=== PATIENT | female | born 1940 | race Caucasian/White ===

== ENCOUNTER 2017-03-25 18:31 | Inpatient (IN) | payer OTHER ==
[~2017-03-25] VITALS: Ht 162.6 cm; Wt 54.4 kg
[~2017-03-25 18:31] MED LIST: ACYCLOVIR IV; AMLODIPINE BESYL5 M1 PO; BIOTIN2500 MCG PO; CALTRATE 600 +1 EACH PO; FISH OIL 1,0001 EACH PO; KEPPRA500 M1 PO; LEVETIRACETAM500 M3 PO; LEVOTHYROXINE50 MCG PO; MAGNESIUM500 M2 PO; MIRALAX119 GM PO; OXYBUTYNIN CHLO10 M1 PO; PHOSPHA 250 NE250 MG PO; SENNA PLUS TAB1 EACH PO; TYLENOL325 M1 PO; VITAMIN D3400 UNI1 PO
--- NOTE | 2017-03-25 18:56 | ED AMS/SEIZURE/WEAK/DIZZY ---
History of Present Illness General Chief Complaint: Altered Mental Status Stated Complaint: BIBA AMS Source: patient, family Exam Limitations: confusion Vital Signs & Intake/Output Vital Signs & Intake/Output Vital Signs Date Time Temp Pulse Resp B/P B/P Pulse O2 O2 Flow FiO2 Mean Ox Delivery Rate 03/25 2332 97.5 68 18 132/62 97 Room Air 03/25 2104 99.5 78 19 147/68 97 Room Air 03/25 2011 78 172/84 03/25 2009 99.1 76 19 172/84 96 Room Air 03/25 1856 Room Air Room Air 03/25 1837 99.1 90 19 197/81 98 Room Air ED Intake and Output 03/26 0000 03/25 1200 Intake Total 10 Output Total Balance 10 Intake, IV 10 Patient 125 lb Weight Weight Reported by Patient Measurement Method Allergies Coded Allergies: No Known Allergies (10/27/15) Reconcile Medications Acetaminophen (Tylenol) 325 MG TABLET 650 MG PO Q4P PRN FEVER Acyclovir Sodium 50 MG/1 ML VIAL 600 MG IV Q8H HSV2 encephalitis Please 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 It was started because you have high blood pressure when you came in. Biotin 2,500 MCG CAPSULE 2 CAP PO DAILY SUPPLEMENT (Reported) Calcium Carbonate/Vitamin D3 (Caltrate 600 + D Tablet) 1 EACH TABLET 1 TAB PO BID SUPPLEMENT (Reported) Cholecalciferol (Vitamin D3) (Vitamin D3) 400 UNIT TABLET 2 TAB PO DAILY SUPPLEMENT (Reported) Levetiracetam (Keppra) 500 MG TABLET 1,000 MG PO BID Seizure disorder Please follow up with your neurologist as the dose has been changed. Levothyroxine Sodium 50 MCG TABLET 1 TAB PO DAILY AC THYROID (Reported) Magnesium Oxide (Magnesium) 500 MG CAPSULE 1 CAP PO BID SUPPLEMENT (Reported) [place]-3 Fatty Acids/Fish Oil (Fish Oil 1,000 MG Capsule) 1 EACH CAPSULE 1 CAP PO DAILY supplement (Reported) Oxybutynin Chloride (Oxybutynin Chloride ER) 10 MG TAB.ER.24 1 TAB PO DAILY BLADDER (Reported) Polyethylene Glycol 3350 (Miralax) 119 GM POWDER 17 GM PO DAILY PRN CONSTIPATION Sennosides/Docusate Sodium (Senna Plus Tablet) 1 EACH TABLET 2 TAB PO DAILY PRN Constipation Triage Note: PT BIBA FROM HOME WITH PRESENT C/C AMS OF SUDDEN ONSET. REPORTS THAT PATIENT CAME TO HIM APPROX 2 PM STATING THAT SHE DIDN'T FEEL RIGHT. AFTER QUESTIONING HER HE DISCOVERED THAT SHE WAS NOT RECALLING THE EVENTS OF THE MORNING. PATIENT HAD BEEN TO VISIT HER SISTER IN LAW AT A REHAB FACILITY. PATIENT CONTINUES TO HAVE NO RECOLLECTION OF THAT. PT ALERT TO PERSON AND PLACE BUT UNSURE OF TIME/DATE. PT FORGETS RECENT CONVERSATION WELL. PT HTN FOR EMS AND UPON ARRIVAL (194/81 AUTO CUFF CONFIRMED MANUALLY). PT STATES NO HX OF HTN AND APPEARS SURPRISED TO HEAR A FEW MINUTES AFTER THE CONVERSATION THAT HER B/P WAS ELEVATED IF THE PREVIOUS CONVERSATION HAD NOT JUST HAPPENED. EMS REPORTS AND CONFIRMS HX OF SEIZURES, ENCEPHALITIS, TIA'A AND EPISODES OF AMNESIA. STATES THE EPISODES OF AMNESIA WAS YEARS AGO. PT NEUROS OTHERWISE INTACT WITH NO FACIAL DROOP, NO DRIFT, EQUAL STRENGTH UPPER/LOWER EXTREMITIES. PT DENIES ANY PAIN. HAS [facility] IV #22 RH. MD TARIQ GARCIA INTO EVALUATE PATIENT ON ARRIVAL TO ER. DAUGHTER ON PHONE WITH DR GARCIA REPORTS HX OF TRANSIENT GLOBAL AMNESIA. Triage Nurses Notes Reviewed? yes HPI: 77 yo F PMH Hypothyroidism, HSV encephalitis, Epilepsy (on keppra), TGA presenting with altered mental status. Per patients she has had progressive confusion since this afternoon aroun 14:00, she has forgotten the events from the morning (visited her sister in the hospital), could not remember things he had just told her, pleasantly confused without agitation or apparent focal neurologic deficits. Denies headache, neck pain, visual changes, weakness, numbness. Patient has been in her usual state of health for the last several days, no recent fevers, chest pain, SOB, palpitations, AP, N/V/D/C, bloody stools, urinary Sx. Daughter states patient had identical presentaiton 1 year ago for hyponatremia to 110 and HSV encephalitis. (Delvin GALLEGOS,Emanuel) Past History Travel History Traveled to [place] past 21 day No Medical History Any Pertinent Medical History? see below for history Neurological: seizure, TIA, ENCEPHALITIS TRANSIENT GLOBAL AMNESIA MIGRAINES W/ AURA EENT: NONE Cardiovascular: NONE Respiratory: NONE Gastrointestinal: NONE Hepatic: NONE Renal: NONE Musculoskeletal: NONE Psychiatric: NONE Endocrine: hypothyroidism Blood Disorders: NONE Cancer(s): NONE AVIATION NEUROPSYCHOLOGIST/Reproductive: NONE History of MRSA: No History of VRE: No History of CDIFF: No Surgical History Surgical History: s/p resection of bladder mass ?neoplasm Psychosocial History Who do you live with Spouse Services at Home None What is your primary language Amharic Tobacco Use: Never used ETOH Use: occasional use Illicit Drug Use: denies illicit drug use Family History Hx Contributory? No (Emanuel Garcia MD) Review of Systems Review of Systems Constitutional: Reports: no symptoms. EENTM: Reports: no symptoms. Respiratory: Reports: no symptoms. Cardiovascular: Reports: no symptoms. GI: Reports: no symptoms. Genitourinary: Reports: no symptoms. Musculoskeletal: Reports: no symptoms. Skin: Reports: no symptoms. Neurological/Psychological: Reports: see HPI. Hematologic/Endocrine: Reports: no symptoms. Immunologic/Allergic: Reports: no symptoms. All Other Systems: Reviewed and Negative (Emanuel Garcia MD) Physical Exam Physical Exam General Appearance: well developed/nourished, no apparent distress, alert Head: atraumatic Eyes: Bilateral: PERRL, EOMI. Ears, Nose, Throat: moist mucus membranes Neck: full range of motion, no midline tenderness Respiratory: normal breath sounds, no respiratory distress Cardiovascular: regular rate/rhythm, normal peripheral pulses Gastrointestinal: soft, non-tender Back: normal inspection, no vertebral tenderness Comments: Neurologic: Oriented to person and "hospital", pleasantly confused, cranial nerves II through XII intact as tested, no pronator drift, normal finger-nose- finger and [id number] testing, no sensory deficits throughout, strength 5 out of 5 throughout bilateral lower upper lower extremities Core Measures ACS in differential dx? No CVA/TIA Diagnosis Yes Sepsis Present: No Sepsis Focused Exam Completed? No (Emanuel Garcia MD) Progress Differential Diagnosis: arrythmia, alcohol intoxication, anemia, benign positional vertigo, CVA/stroke, dehydration, drug intoxication, encephalitis, electrolyte imbalance, GI bleed, hypoglycemia, hypoxia, intracranial Hem., intracranial mass/tumor, labrynthitis, meningitis, Meniere's disease, migraine CAMPO, multiple sclerosis, pneumonia, postural hypotension, presyncope, post- traumatic vertigo, sepsis, seizure disorder, subarachnoid Hem., UTI/pyelo, vertebrobasilar insuff Plan of Care: Orders Procedure Date/time Status Pathway - chart 03/25 2355 Active House Staff 03/25 2355 Active Patient Data 03/25 2355 Active Code Status 03/25 2355 Active Patient Data 03/25 2127 Active Admit to inpatient 03/25 2112 Active Intake & Output 03/25 2110 Active NIH Stroke Scale 03/25 193 Active CEREBROSPINAL FLUID CULTURE 03/25 1858 Active HERPES SIMPLEX VIRUS CSF 03/25 1858 Active CSF TOTAL PROTEIN 03/25 1858 Complete CEREBROSPINAL FL CELL CT 03/25 1858 Complete CSF GLUCOSE 03/25 1858 Complete URINALYSIS 03/25 1857 Complete TROPONIN LEVEL 03/25 1857 Complete LACTIC ACID 03/25 1857 Complete HEPATIC FUNCTION PANEL 03/25 1857 Complete CBC WITHOUT DIFFERENTIAL 03/25 1857 Complete BASIC METABOLIC PANEL 03/25 1857 Complete EKG 03/25 1857 Active VTE Mechanical Prophylaxis 03/25 UNK Active Telemetry/Phlebotomy Services Technician 03/25 UNK Active Laboratory Tests 03/25/172044: CSF Glucose 60, CSF Total Protein 79 H 03/25/172044: CSF WBC 2, CSF RBC 2 H, CSF Comment , Herpes Simplex Source Pending, HSV I DNA PCR Pending, HSV II DNA PCR Pending 03/25/172003: Anion Gap 12, Estimated GFR > 60, BUN/Creatinine Ratio 30.0 H, Glucose 126 H, Lactic Acid 1.0, Calcium 9.6, Total Bilirubin 0.5, Direct Bilirubin 0.2, AST 22, ALT 30, Alkaline Phosphatase 92, Troponin I < 0.01, Total Protein 7.0, Albumin 4.5 03/25/171925: CBC w Diff NO MAN DIFF REQ, RBC 4.81, MCV 90.2, MCH 30.5, MCHC 33.8, RDW 12.9, MPV 7.8, Gran % 67.4, Lymphocytes % 26.7, Monocytes % 4.8, Eosinophils % 0.6, Basophils % 0.5, Absolute Granulocytes 4.2, Absolute Lymphocytes 1.6, Absolute Monocytes 0.3, Absolute Eosinophils 0, Absolute Basophils 0 03/25/171911: Urine Color STRAW, Urine Clarity CLEAR, Urine pH 6.0, Ur Specific [place] 1.010, Urine Protein NEG, Urine Ketones NEG, Urine Nitrite NEG, Urine Bilirubin NEG, Urine Urobilinogen 0.2, Ur Leukocyte Esterase NEG, Ur Microscopic SEDIMENT EXAMINED, Urine RBC FEW H, Urine WBC RARE, Ur Epithelial Cells RARE, Urine Bacteria RARE H, Urine Mucus RARE, Urine Hemoglobin TRACE-INTACT, Urine Glucose NEG Microbiology 03/25 2044 CENT N S: CSF Culture - RES 03/25 2044 CENT N S: Gram Stain - RES Physician MDM: 64 yo M PMH HTN, HLD, COPD presenting with URI Sx, hypoxia. Hypertensive to 190s SBP, otherwise VSS, rectal temp 99.1, neurologic exam as above. DDx: ICH, hypertensive urgency, HSV encephalitis, TGA, CVA, metabolic derrangement, sepsis. EKG sinus rhythm. CBC, BMP unremarkable, normal white blood cell count and sodium. Chest x-ray and urine without signs of infection. CT head unchanged from previous. Given unclear cause for altered mental status, lumbar puncture performed, vancomycin, ceftriaxone, and acyclovir ordered. On re -examination patient persistently confused, admit for observation, IV abx pending CSF results. Initial ED EKG: NSR (Delvin GALLEGOS,Emanuel) Departure Departure Disposition: STILL A PATIENT Condition: Stable Clinical Impression Primary Impression: Confusion Referrals: Jr GALLEGOS,Kennedy Barillas (PCP/Family) Departure Forms: Customer Survey General Discharge Information Admission Note Spoke With: Beatrice Stewart MD Documentation of Exam: Documentation of any treatments & extenuating circumstances including Concerns Regarding Discharge (functional status, medication knowledge or non-compliance, living conditions, etc.) that warrant an admission rather than observation: [ Patient presents with acute onset altered mental status in the setting of hypertension and history of herpes simplex encephalitis, lumbar puncture was performed given concern for HSV encephalitis, patient requires admission to the hospital for ongoing IV antibiotics for possible encephalitis, monitoring for clearing of altered mental status, possible neurology and infectious disease consultation, further evaluation, if the patient was discharged she has a high likelihood of continued altered mental status, with possible overwhelming LACQUER POLISHER infection and ] (Emanuel Garcia MD) Resident Co-Sign Statement Statement: ED Attending supervision documentation- [] I saw and evaluated the patient. I have also reviewed all the pertinent lab results and diagnostic results. I agree with the findings and the plan of care as documented in the Resident's documentation. [X] I have reviewed the ED Record and agree with the Resident's documentation. [] Additions or exceptions (if any) to the Resident's note and plan are summarized below: [] (Jourdan GALLEGOS,Mamta)
[2017-03-25 19:32] LABS: ABSOLUTE BASOPHIL COUNT 0 /CUMM (0.0-0.2); ABSOLUTE EOSINOPHIL COUNT 0 /CUMM (0.0-0.7); ABSOLUTE GRANULOCYTE CT 4.2 /CUMM (1.4-6.5); ABSOLUTE LYMPH COUNT 1.6 /CUMM (1.2-3.4); ABSOLUTE MONOCYTE COUNT 0.3 /CUMM (0.10-0.60); BASOPHIL % 0.5 % (0.0-2.0); EOSINOPHIL % 0.6 % (0-5); GRANULOCYTE % 67.4 % (42.2-75.2); HEMATOCRIT 43.3 % (37-47); MEAN CORPUSCULAR HGB 30.5 PG (27.0-31.0); MEAN CORPUSCULAR HGB CONC 33.8 G/DL (33.0-37.0); MEAN CORPUSCULAR VOLUME 90.2 FL (81.0-99.0); MEAN PLATELET VOLUME 7.8 FL (7.4-10.4); PLATELET COUNT 231 /CUMM (130-400); RBC DISTRIBUTION WIDTH 12.9 % (11.5-14.5); RED BLOOD CELL CT 4.81 /CUMM (4.20-5.40); WHITE BLOOD CELL COUNT 6.2 /CUMM (4.8-10.8)
--- NOTE | 2017-03-25 19:49 | RADIOLOGY REPORT ---
EXAMINATION: XR CHEST CLINICAL INFORMATION: Fever. COMPARISON: Chest portable 11/03/2015. TECHNIQUE: 2 views of the chest were obtained. FINDINGS: Both lungs are well-expanded and clear of acute process. The heart size and pulmonary vascularity is normal. There is mild dextroscoliosis of dorsal spine. No lytic process. IMPRESSION: Unremarkable chest exam.
--- NOTE | 2017-03-25 20:17 | CT SCAN REPORT ---
EXAMINATION: CT HEAD WITHOUT CONTRAST CLINICAL INFORMATION: Confusion and hypertension. COMPARISON: MRI brain 10/30/2015. TECHNIQUE: Contiguous axial imaging was performed from the skull base to vertex without intravenous administration of contrast. DLP: 614 mGy-cm FINDINGS: There is no evidence of acute intracranial hemorrhage or territorial infarction. 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 No abnormal mass effect or midline shift is seen. Holly to white matter differentiation is well preserved. No extra-axial fluid collections are identified. The lateral ventricles are enlarged and so are the cortical sulci. There is ex vacuo dilatation of right temporal horn lateral ventricle secondary to encephalomalacia. There is no abnormal attenuation within the brain parenchyma. The osseous structures and soft tissues are normal. The mastoid air cells and visualized portions of the paranasal sinuses are well aerated. IMPRESSION: No acute intracranial process seen. 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 On previous MRI white matter changes were seen in temporal lobe suspicious for herpes simplex encephalitis.
--- NOTE | 2017-03-25 23:34 | History & Physical ---
Romel Lares MD 03/25/17 4113: General Information and HPI MD Statement: I have seen and personally examined CHAR NELSON and documented this H&P. The patient is a 77 year old F who presented with a patient stated chief complaint of [altered mental status]. Source of Information: patient, family Exam Limitations: confusion, poor historian History of Present Illness: Patient is a 77-year-old female with a PMH significant for seizure disorder ( last seizure approximately 34 years ago) on Keppra, HSV encephalitis, TIA, transient global amnesia, HTN, who presents today due to altered mental status. Patient's was at bedside and reports that she was in her usual state of health this morning however after returning from a trip to visit her sister she complained to her of not feeling well. She was unable to articulate exactly what her complaint was however at this time her noticed that she had no recollection of visiting her sister and was taking several seconds to respond to questions. She states that she no longer takes her antihypertensive medicine or Synthroid. In the patient currently has some exercise and a very poor memory review of systems was unreliable. She currently denies any headache, visual changes, numbness, tingling, weakness, chest pain, shortness breath, nausea, vomiting, fever, chills. Allergies/Medications Allergies: Coded Allergies: No Known Allergies (10/27/15) Past History Travel History Traveled to [place] past 21 day No Medical History Neurological: seizure, TIA, ENCEPHALITIS TRANSIENT GLOBAL AMNESIA MIGRAINES W/ AURA EENT: NONE Cardiovascular: NONE Respiratory: NONE Gastrointestinal: NONE Hepatic: NONE Renal: NONE Musculoskeletal: NONE Psychiatric: NONE Endocrine: hypothyroidism Blood Disorders: NONE Cancer(s): NONE VETERINARY TOXICOLOGIST/Reproductive: NONE History of MRSA: No History of VRE: No History of CDIFF: No Surgical History Surgical History: s/p resection of bladder mass ?neoplasm Past Family/Social History Family History Relations & Conditions if any Relation not specified for: *No pertinent family history Psychosocial History Where do you live? Home Who Do You Live With? spouse Services at Home: None Primary Language: Bulgarian Smoking Status: Never Smoked ETOH Use: 1-2 glasses of wine daily Illicit Drug Use: denies illicit drug use Living Will? no Functional Ability ADLs Independent: dressing, eating, toileting, bathing. Ambulation: independent IADLs Independent: shopping, housework, food prep, telephone, transportation. Needs Assist: medication admin. Review of Systems Review of Systems Constitutional: Reports: malaise. Denies: chills, diaphoresis, fever. EENTM: Denies: blurred vision, double vision, visual changes. Cardiovascular: Denies: chest pain, orthopena, palpitations, syncope. Respiratory: Denies: cough, orthopnea, short of breath. GI: Reports: no symptoms. Genitourinary: Reports: no symptoms. Musculoskeletal: Reports: no symptoms. Skin: Reports: no symptoms. Neurological/Psychological: Reports: confusion. Denies: headache, numbness, paresthesia. Comments Patient is able to repeat 3 respectively however she could not recall them after 30 seconds Exam & Diagnostic Data Last 24 Hrs of Vital Signs/I&O Vital Signs Date Time Temp Pulse Resp B/P B/P Pulse O2 O2 Flow FiO2 Mean Ox Delivery Rate 03/26 0546 97.5 66 18 126/59 96 Room Air 03/26 0314 97.5 63 18 159/72 97 Room Air 03/26 0129 98.6 79 18 144/65 97 Room Air 03/25 2332 97.5 68 18 132/62 97 Room Air 03/25 2104 99.5 78 19 147/68 97 Room Air 03/25 2011 78 172/84 03/25 2009 99.1 76 19 172/84 96 Room Air 03/25 1856 Room Air Room Air 03/25 1837 99.1 90 19 197/81 98 Room Air Intake & Output 03/26 0800 / 0000 03/25 1600 Intake Total 350 10 Output Total Balance 350 10 Intake, IV 350 10 Patient 125 lb Weight Weight Reported by Patient Measurement Method Physical Exam General Appearance Alert, Cooperative, No Acute Distress, oriented to person, knows she is in a hospital but cannot name it, not oriented to time Skin Temp/Moisture Exam: Warm/Dry HEENT Atraumatic, PERRLA, EOMI, Mucous Membr. moist/pink Neck Supple, No thryomegaly, no stiffness Cardiovascular Regular Rate, Normal S1, Normal S2 Lungs Clear to Auscultation, Normal Air Movement Abdomen Normal Bowel Sounds, Soft, No Tenderness Neurological Normal Speech, Strength at 5/5 X4 Ext, Normal Tone, Sensation Intact, Cranial Nerves 3-12 NL Extremities No Clubbing, No Cyanosis, No Edema Last 24 Hrs of Labs/Titi: Laboratory Tests 03/26/17 0138: Methadone Screen Cancelled, Barbiturate Screen Cancelled, Ur Phencyclidine Scrn Cancelled, Amphetamines Screen Cancelled, U Benzodiazepines Scrn Cancelled, Urine Cocaine Screen Cancelled, Urine Cannabis Screen Cancelled 03/25/172044: CSF Glucose 60, CSF Total Protein 79 H 03/25/172044: CSF WBC 2, CSF RBC 2 H, CSF Comment , Herpes Simplex Source Pending, HSV I DNA PCR Pending, HSV II DNA PCR Pending 03/25/17 2004: Anion Gap 12, Estimated GFR > 60, BUN/Creatinine Ratio 30.0 H, Glucose 126 H, Lactic Acid 1.0, Calcium 9.6, Total Bilirubin 0.5, Direct Bilirubin 0.2, AST 22, ALT 30, Alkaline Phosphatase 92, Troponin I < 0.01, Total Protein 7.0, Albumin 4.5, Vitamin B12 > 1000 H, Folate 6.5, TSH 1.200, Free T4 1.24 03/25/171925: CBC w Diff NO MAN DIFF REQ, RBC 4.81, MCV 90.2, MCH 30.5, MCHC 33.8, RDW 12.9, MPV 7.8, Gran % 67.4, Lymphocytes % 26.7, Monocytes % 4.8, Eosinophils % 0.6, Basophils % 0.5, Absolute Granulocytes 4.2, Absolute Lymphocytes 1.6, Absolute Monocytes 0.3, Absolute Eosinophils 0, Absolute Basophils 0 03/25/17 191: Urine Opiates Screen < 100.00, Methadone Screen < 40, Barbiturate Screen < 60, Ur Phencyclidine Scrn < 6.00, Amphetamines Screen < 100, U Benzodiazepines Scrn < 85, Urine Cocaine Screen < 50, Urine Cannabis Screen < 5.00, Urine Color STRAW , Urine Clarity CLEAR, Urine pH 6.0, Ur Specific [place] 1.010, Urine Protein NEG, Urine Ketones NEG, Urine Nitrite NEG, Urine Bilirubin NEG, Urine Urobilinogen 0.2, Ur Leukocyte Esterase NEG, Ur Microscopic SEDIMENT EXAMINED, Urine RBC FEW H, Urine WBC RARE, Ur Epithelial Cells RARE, Urine Bacteria RARE H, Urine Mucus RARE, Urine Hemoglobin TRACE-INTACT, Urine Glucose NEG Microbiology 03/25 2044 CENT N S: CSF Culture - RES 03/25 2044 CENT N S: Gram Stain - RES Diagnostic Data EKG Results NSR CXR Results unremarkable Other Results Head CT No acute intracranial process seen. 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 On previous MRI white matter changes were seen in temporal lobe suspicious for herpes simplex encephalitis. Assessment/Plan Assessment: Patient is a 77-year-old female with a PMH significant for seizure disorder ( last seizure approximately 34 years ago) on Keppra, HSV encephalitis, TIA, transient global amnesia, HTN, who presents today due to altered mental status. Overall she displays very poor recall, but has no focal neurological deficits. It is unknown how long the patient has been off of her antihypertensives with thyroid medication. Patient was hypertensive on presentation which may have been the etiology for these symptoms however other etiologies of encephalopathy cannot be ruled out at this time. Problem list #Encephalopathy #Seizure disorder # History of hypertension and hypothyroidism longer on medication Plan -Admit to telemetry floor -Continuous telemetry monitoring -Serial neural checks -MRI -EEG -Seizure precautions -Neurology consult has been placed -Based on normal CSF WBC, viral encephalitis is unlikely -ID consult, briefly discussed patient with infectious disease Mitch Medina MD recommended discontinuing acyclovir -Continue home dose of Keppra 1500 mg extended-release -DVT prophylaxis: ABDULLAHI Gallegos -CODE STATUS: Full code As Ranked By This Provider Problem List: 1. Confusion Core Measures/Misc (11/06) Acute Coronary Syndrome ACS Diagnosis: No Congestive Heart Failure Congestive Heart Failure Diagnosis No Cerebrovascular Accident CVA/TIA Diagnosis: No VTE (View Protocol) VTE Risk Factors Age>40 No Mechanical VTE Prophylaxis d/t N/A MechProphylax Ordered No VTE Pharm Prophylaxis d/t NA PharmProphylax ordered Sepsis (View protocol) Sepsis Present: No Beatrice Stewart 03/26/17 0504: General Information and HPI Allergies/Medications Home Med list Acetaminophen (Tylenol) 325 MG TABLET 650 MG PO Q4P PRN FEVER Acyclovir Sodium 50 MG/1 ML VIAL 600 MG IV Q8H HSV2 encephalitis Please take until 11/12/15 Biotin 2,500 MCG CAPSULE 2 CAP PO DAILY SUPPLEMENT (Reported) Calcium Carbonate/Vitamin D3 (Caltrate 600 + D Tablet) 1 EACH TABLET 1 TAB PO BID SUPPLEMENT (Reported) Cholecalciferol (Vitamin D3) (Vitamin D3) 400 UNIT TABLET 2 TAB PO DAILY SUPPLEMENT (Reported) Levetiracetam (Keppra) 500 MG TABLET 1,500 MG PO DAILY Seizure disorder Please follow up with your neurologist as the dose has been changed. Magnesium Oxide (Magnesium) 500 MG CAPSULE 1 CAP PO BID SUPPLEMENT (Reported) [place]-3 Fatty Acids/Fish Oil (Fish Oil 1,000 MG Capsule) 1 EACH CAPSULE 1 CAP PO DAILY supplement (Reported) Oxybutynin Chloride (Oxybutynin Chloride ER) 10 MG TAB.ER.24 1 TAB PO DAILY BLADDER (Reported) Polyethylene Glycol 3350 (Miralax) 119 GM POWDER 17 GM PO DAILY PRN CONSTIPATION Sennosides/Docusate Sodium (Senna Plus Tablet) 1 EACH TABLET 2 TAB PO DAILY PRN Constipation Attending MD Review Statement Attending Statement Attending MD Statement: examined this patient, discuss w/resident/PA/CONTENT MANAGER, agreed w/resident/PA/CONTENT MANAGER, discussed with family, reviewed EMR data (avail), reviewed images, amended to note Attending Assessment/Plan: CC: Abnormal behavior PMH: Seizure disorder (compliant with medications), HTN, hypothyroidism (not on medications for both), history of viral encephalitis Patient was brought in by her family for abnormal behavior. Patient does not have much insight of what is going on but she tells "something is wrong". According to her patient has been not herself since this afternoon. In the morning patient went to meet her [id number], came back around afternoon and forgot she visited her [id number]. Patient showed some more memory problems, delayed but family did not notice any slurry speech, any focal weakness, seizure-like episode. no history of fever, chills, severe headache, dizziness, loss of consciousness, URI symptoms, urinary burning or frequency, diarrhea or vomiting. According to her exactly similar behavior changes had happened last year when patient was diagnosed to have viral encephalitis, additionally at that time patient had fever and behavioral changes were more severe. Before that episode patient's mentions that 3-4 times in the past patient had been confused for very transient duration intermittently over years. Vitals: T max 99.5, pulse in 90, RR 19, blood pressure 197/81 decreased to 132/ 82 after IV labetalol, saturating well on room air. On exam: A O 2, well groomed, poor recall, delayed responses, able to add "7+7 " without any problem till 49, no neck stiffness , ears have wax, no pharyngeal congestion, sinus tenderness, neck tenderness, complete neurological examination unremarkable, cooperative, no acute distress, neck supple, JVD normal, no lymphadenopathy, mucosa moist, no dependent edema, no obvious skin rashes or inflammation CVS: S1-S2, RRR. RS: Clear to auscultate bilaterally. Abdomen: Soft , NT, ND, bowel sounds present. Labs: CBC, BMP, LFT, UA unremarkable CSF: Clear, colorless WBC 2, RBC 2, glucose 60, protein 79 CXR: No acute cardiopulmonary changes CT head: No acute intracranial process seen. 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 On previous MRI white matter changes were seen in temporal lobe suspicious for herpes simplex encephalitis. Assessment and plan 77-year-old female with past medical history significant for Seizure disorder ( compliant with medications), HTN, hypothyroidism not taking medications for these conditions, according to her it was discontinued, history of viral encephalitis was brought in ER by her family for abnormal behavior, family noticed decreased recall, slow to respond, forgetful and "not being herself". The did not notice any seizure-like activity, no fever or chills, no severe headache, no ear discharge. According to her exactly similar behavior changes had happened last year when patient was diagnosed to have viral encephalitis, additionally at that time patient had fever and behavioral changes were more severe. Before that episode patient's mentions that 3-4 times in the past patient had been confused for very transient duration intermittently over years. On examination A O 2, well groomed, poor recall (cannot repeat 3 things in short time lapse), delayed responses, able to add "7+7" without any problem till 49 (she could do more), no neck stiffness , ears have wax, no pharyngeal congestion, sinus tenderness, neck tenderness, complete neurological examination unremarkable. CT scan unremarkable. Lumbar puncture was obtained which did not show any elevated WBC count, it has mildly elevated protein. At this point it is unclear cause of behavioral changes. Patient has elevated blood pressure at arrival, not taking any blood pressure medication patient may have mild hypertensive encephalopathy, rule out toxic encephalopathy with U tox, this could be early symptoms for viral encephalitis or it could be atypical seizures, needs further evaluation. HSV PCR is pending, we will continue acyclovir which till the results are back. + Encephalopathy of unclear etiology + History of hypertension and hypothyroidism : Noncompliance + History of seizure - Admit to telemetry for serial neuro checks - Seizure precautions - Resume antihypertensive from morning, amlodipine 5 mg if blood pressure persistently elevated overnight - Obtain U tox, TSH level, B12 level, folate level - Follow-up PCR results - Continue acyclovir for now - MRI in a.m. - EEG in a.m. - Continue thiamine as discussed - Neuro consult, ID consult - Continue home doses of Keppra - DVT prophylaxis Maximo GALLEGOS,[facility] 03/26/17 0942: Resident Review Statement Resident Statement: examined this patient, discussed with business analyst intern Other Findings: H this is a pleasant 77-year-old female past medical history of HSV encephalitis , TIA, seizure disorder, hypertension who presented to the emergency department on the evening of 03/25/2017 after her noted that she was confused and had short term memory loss. Patient was in her normal state of health up until she got back from visiting with her sister. Was reported that as soon as she did this she appeared very disoriented and was unable to respond questions adequately. She was also found to have no recollection of the events that occurred over the course of the morning prior to being brought in. Much of the clinical history was obtained from the patients . R Patient denied any fever, chills, nausea, vomiting, visual changes, numbness, tingling and tingling, chest pain, weakness, shortness of breath. E: General Appearance Alert, Cooperative, No Acute Distress. Disoriented to person and time. Oriented to place. Skin Temp/Moisture Exam: Warm/Dry HEENT Atraumatic, PERRLA, EOMI, Mucous Membr. moist/pink Neck Supple, No thryomegaly, no stiffness Cardiovascular Regular Rate, Normal S1, Normal S2 Lungs Clear to Auscultation, Normal Air Movement Abdomen Normal Bowel Sounds, Soft, No Tenderness Neurological Normal Speech, Strength at 5/5 X4 Ext, Normal Tone, Sensation Intact, Cranial Nerves 3-12 NL Extremities No Clubbing, No Cyanosis, No Edema Gait Untested. L: WBC: 6.2. H/H 14.7/43.3. Platelets 231. 141. K: 4.2. BUN: 21. CR: 0.7. I: SERVICE DATE: 03/25/17 EXAM TYPE: RAD - XRY-CHEST XRAY, TWO VIEWS IMPRESSION: Unremarkable chest exam. SERVICE DATE: 03/25/17 EXAM TYPE: CAT - CT HEAD WO IV CONTRAST IMPRESSION: No acute intracranial process seen. 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 On previous MRI white matter changes were seen in temporal lobe suspicious for herpes simplex encephalitis. A/P: #Encephalopathy/Encephalitis/ Evaluate for Global Amnesia. #History of Seizures, rule out non convulsive seizure. #History of Hypertension #History of Hypothyroidism Admit the patient to telemetry for frequent neuro checks. MRI to rule out any acute pathology. Neurology consultation in a.m. Consider EEG. Obtain infectious disease consultation to assess with the patient should follow on/off antibiotics/antivirals. May consider a Lumbar Puncture. Continue home medication of Keppra 750 mg twice a day [equivalent of 1500 and extended release. DVT prophylaxis Lovenox. CODE STATUS full code.
[2017-03-26] MEDS ORDERED: KEPPRA500 M1 PO (00:27)
--- NOTE | 2017-03-26 05:06 | Admission Certification ---
Admission Certification Certification Statement - As attending physician, I certify that at the time of - admission, based on clinical presentation, severity of - symptoms, need for further diagnostic testing and - therapeutic interventions, and risk of adverse outcomes - without in-hospital treatment, in my clinical assessment, - this patient requires an acute hospital stay for a minimum - of two nights or longer. I have also considered psychsocial - factors such as support system, advanced age, financial - issues, cognitive issues, and failed out-patient treatments, - past re-admission history, safety of patient, and lack of - compliance as applicable. Specific rationale supporting this admission is: Encephalopathy
--- NOTE | 2017-03-26 09:53 | PN- Housestaff ---
Neelima GALLEGOS,[place]bin 03/26/17 0953: Subjective Follow-up For: Encephalopathy H/O Seizure disorder H/O hypertension and hypothyroidism longer on medication Subjective: Patient was seen and examined. Patient states she is doing fine. States she does not remember what happened to bring her in. Patient denies any headaches, visual disturbances, nausea/vomitting, neck pain, chest pain, palpitations, SOB, abdominal pain, constipation/diarrhea, fever/chills. No acute events overnight. Review of Systems Constitutional: Reports: no symptoms. Cardiovascular: Reports: no symptoms. Respiratory: Reports: no symptoms. Gastrointestinal: Reports: no symptoms. Genitourinary: Reports: no symptoms. Musculoskeletal: Reports: no symptoms. Skin: Reports: no symptoms. Neurological/Psychological: Reports: other (transient amnesia). Objective Last 24 Hrs of Vital Signs/I&O Vital Signs Date Time Temp Pulse Resp B/P B/P Pulse O2 O2 Flow FiO2 Mean Ox Delivery Rate 03/26 0750 98.8 58 18 134/66 97 Room Air 03/26 0546 97.5 66 18 126/59 96 Room Air 03/26 0314 97.5 63 18 159/72 97 Room Air 03/26 0129 98.6 79 18 144/65 97 Room Air 03/25 2332 97.5 68 18 132/62 97 Room Air 03/25 2104 99.5 78 19 147/68 97 Room Air 03/25 2012 78 172/84 03/25 2010 99.1 76 19 172/84 96 Room Air 03/25 1856 Room Air Room Air 03/25 1837 99.1 90 19 197/81 98 Room Air Intake & Output 03/26 1600 03/26 0800 03/26 0000 Intake Total 350 10 Output Total Balance 350 10 Intake, IV 350 10 Patient 125 lb Weight Weight Reported by Patient Measurement Method Physical Exam General Appearance: Alert, Oriented X3, Cooperative, No Acute Distress Skin: No Rashes Skin Temp/Moisture Exam: Warm/Dry HEENT: Atraumatic, PERRLA, EOMI, Mucous Membr. moist/pink Neck: Supple, No JVD, No thryomegaly, +2 Carotid Pulse wo Bruit Lymphatic: Cervical nl Cardiovascular: Regular Rate, Normal S1, Normal S2, No Murmurs Lungs: Clear to Auscultation, Normal Air Movement Abdomen: Normal Bowel Sounds, Soft, No Tenderness Neurological: Normal Gait, Normal Speech, Strength at 5/5 X4 Ext, Normal Tone, Sensation Intact, Cranial Nerves 3-12 NL, Reflexes 2+ Extremities: No Clubbing, No Cyanosis, No Edema, Normal Pulses, No Tenderness/ Swelling Current Medications: Current Medications Sig/James Start time Last Medication Dose Route Stop Time Status Admin Acyclovir 600 MG ONCE ONE 03/25 2014 DC 03/25 Dextrose/Water 100 ML IV 03/25 Ceftriaxone Sodium 0 .STK-MED ONE 03/25 2140 DC .ROUTE Ceftriaxone Sodium 1,000 MG ONCE ONE 03/25 2114 DC 03/25 IV 03/25 Ceftriaxone Sodium 0 .STK-MED ONE 03/25 2052 DC .ROUTE Ceftriaxone Sodium 1,000 MG ONCE ONE 03/25 2014 DC 03/25 IV 03/25 Labetalol HCl 0 .STK-MED ONE 03/25 194 DC IV Labetalol HCl 10 MG ONCE ONE 03/25 1930 DC 03/25 IV 03/25 1932011 Levetiracetam 750 MG BID 03/26 1000 AC PO Multivitamins 1 TAB DAILY 03/26 1000 AC PO Thiamine HCl 0 .STK-MED ONE 03/26 0216 DC PO Thiamine HCl 200 MG TID 03/26 0145 AC 03/26 PO 03/28 0000 0215 Vancomycin HCl 1,000 MG ONCE ONE 03/25 2014 DC 03/25 Dextrose/Water 250 ML IV 03/25 2113 2222 Last 24 Hrs of Lab/Titi Results Last 24 Hrs of Labs/Mics: Laboratory Tests 03/26/17 0138: Methadone Screen Cancelled, Barbiturate Screen Cancelled, Ur Phencyclidine Scrn Cancelled, Amphetamines Screen Cancelled, U Benzodiazepines Scrn Cancelled, Urine Cocaine Screen Cancelled, Urine Cannabis Screen Cancelled 03/25/172044: CSF Glucose 60, CSF Total Protein 79 H 03/25/172044: CSF WBC 2, CSF RBC 2 H, CSF Comment , Herpes Simplex Source Pending, HSV I DNA PCR Pending, HSV II DNA PCR Pending 03/25/172003: Anion Gap 12, Estimated GFR > 60, BUN/Creatinine Ratio 30.0 H, Glucose 126 H, Lactic Acid 1.0, Calcium 9.6, Total Bilirubin 0.5, Direct Bilirubin 0.2, AST 22, ALT 30, Alkaline Phosphatase 92, Troponin I < 0.01, Total Protein 7.0, Albumin 4.5, Vitamin B12 > 1000 H, Folate 6.5, TSH 1.200, Free T4 1.24 03/25/171925: CBC w Diff NO MAN DIFF REQ, RBC 4.81, MCV 90.2, MCH 30.5, MCHC 33.8, RDW 12.9, MPV 7.8, Gran % 67.4, Lymphocytes % 26.7, Monocytes % 4.8, Eosinophils % 0.6, Basophils % 0.5, Absolute Granulocytes 4.2, Absolute Lymphocytes 1.6, Absolute Monocytes 0.3, Absolute Eosinophils 0, Absolute Basophils 0 03/25/171911: Urine Opiates Screen < 100.00, Methadone Screen < 40, Barbiturate Screen < 60, Ur Phencyclidine Scrn < 6.00, Amphetamines Screen < 100, U Benzodiazepines Scrn < 85, Urine Cocaine Screen < 50, Urine Cannabis Screen < 5.00, Urine Color STRAW , Urine Clarity CLEAR, Urine pH 6.0, Ur Specific [place] 1.010, Urine Protein NEG, Urine Ketones NEG, Urine Nitrite NEG, Urine Bilirubin NEG, Urine Urobilinogen 0.2, Ur Leukocyte Esterase NEG, Ur Microscopic SEDIMENT EXAMINED, Urine RBC FEW H, Urine WBC RARE, Ur Epithelial Cells RARE, Urine Bacteria RARE H, Urine Mucus RARE, Urine Hemoglobin TRACE-INTACT, Urine Glucose NEG Microbiology 03/25 2044 CENT N S: CSF Culture - RES 03/25 2044 CENT N S: Gram Stain - RES Assessment/Plan Assessment: Patient is a 77 y/o female with PMH of seizure disorder on [facility], HSV encephalitis (2017), TIA, transient global amnesia and HTN presenting with AMS with expressive dysphasia and amensia. Patient was worked up for AMS. Head CT and CXR were negative. LP was performed showing WBC: 2, RBC: 2, Glucose: 60, Total Protein: 79. Remainder of labs including CBC, electrolytes, vitamin B12 and folate, TSH and freeT4 were normal. Utox was negative. Patient on examination had no recollection of the events that brought her into the hospital. Patient is now A&O x3. Patient today was evaluated by ID and neurology and likely has transient global amnesia. Patient is being observed off antibiotics/antiretroviral therapy. HSV PCR pending. 1. AMS likely Global Transient Amnesia - follow up STUDENT OUTREACH COORDINATOR HSV PCR - follow up CSF culture - continue Kepra 750mg BID - continue MVM, thiamine, aspirin - MRI pending - EEG pending DVT PPx: Lovenox Code: Full code Diet: Regular diet Problem List: 1. Confusion Pain Ratin Pain Location: n/a Pain Goal: Remain pain free Pain Plan: n/a Tomorrow's Labs & Rationales: bep cbc Sona GALLEGOS,[place] 03/26/17 1333: Attending MD Review Statement Attending Statement Attending MD Statement: examined this patient, discuss w/resident/PA/RUBBER GOODS REPAIRER, agreed w/resident/PA/RUBBER GOODS REPAIRER, discussed with family, reviewed EMR data (avail), discussed with nursing, amended to note Attending Assessment/Plan: Patient seen and examined. She is currently alert and oriented 3 however she has no recall of what led to hospitalization or how she got here. She also has poor recall of several recent events according to family members. She is afebrile. She is hemodynamically stable. On examination cranial nerves II through XII are intact. Power is 5/5 in all extremities. Sensation is intact globally. Patient symptoms at present are mainly of amnesia. She does have a history of transient global amnesia. Other differential could be a prolonged postictal state however family denies any seizure episodes in the past 5 years. Infectious etiology appears less clinical given her afebrile status and no leukocytosis. It is unclear the role that her temporal encephalomalacia is contributing to her symptoms as well. Recommendations: -ID consultation appreciated. Follow-up CSF HSV PCR. Hold off any antibiotic/ antiviral therapy for now. - Obtain EEG -Continue antiplatelet therapy with Keppra. -Follow-up with the neurology service. Follow-up if she will benefit from further neuro imaging such as an MRI.
--- NOTE | 2017-03-26 10:02 | Cons- Infect Disease ---
General Information and HPI Consulting Request Date of Consult: 03/26/17 Requested By: Beatrice Stewart MD Reason for Consult: Rule out encephalitis Source of Information: patient, family, old records History of Present Illness: This is a 77-year-old woman with a history of hypothyroidism, hypertension, status post TIA, seizure disorder, maintained on Keppra, status post several episodes of transient global amnesia, hospitalized nearly 1 1/2 years prior to admission with HSV encephalitis, treated with a 2 week course of Acyclovir, in her usual state of health until the day of admission, March 25, when she was brought to the emergency room because of the acute onset of confusion and memory loss. On admission she was afebrile. Laboratory data revealed a white blood cell count of 6000, BUN/creatinine 21 and 0.7, with normal liver enzymes, TSH 1.2. Urinalysis few RBCs/rare WBCs. Chest x-ray was negative. CT of the head revealed a right temporal lobe encephalomalacia. She underwent an LP which revealed 2 white blood cells and 2 red blood cells, glucose 60 and protein 79. She was given Vancomycin, Ceftriaxone and Acyclovir and was then followed off antibiotics. She has remained afebrile and she has somewhat improved according to her . At present she offers no complaints and is able to provide a history, though with some lapses in memory. Allergies/Medications Allergies: Coded Allergies: No Known Allergies (10/27/15) Home Med List: Acetaminophen (Tylenol) 325 MG TABLET 650 MG PO Q4P PRN FEVER Acyclovir Sodium 50 MG/1 ML VIAL 600 MG IV Q8H HSV2 encephalitis Please take until 11/12/15 Biotin 2,500 MCG CAPSULE 2 CAP PO DAILY SUPPLEMENT (Reported) Calcium Carbonate/Vitamin D3 (Caltrate 600 + D Tablet) 1 EACH TABLET 1 TAB PO BID SUPPLEMENT (Reported) Cholecalciferol (Vitamin D3) (Vitamin D3) 400 UNIT TABLET 2 TAB PO DAILY SUPPLEMENT (Reported) Levetiracetam (Keppra) 500 MG TABLET 1,500 MG PO DAILY Seizure disorder Please follow up with your neurologist as the dose has been changed. Magnesium Oxide (Magnesium) 500 MG CAPSULE 1 CAP PO BID SUPPLEMENT (Reported) [place]-3 Fatty Acids/Fish Oil (Fish Oil 1,000 MG Capsule) 1 EACH CAPSULE 1 CAP PO DAILY supplement (Reported) Oxybutynin Chloride (Oxybutynin Chloride ER) 10 MG TAB.ER.24 1 TAB PO DAILY BLADDER (Reported) Polyethylene Glycol 3350 (Miralax) 119 GM POWDER 17 GM PO DAILY PRN CONSTIPATION Sennosides/Docusate Sodium (Senna Plus Tablet) 1 EACH TABLET 2 TAB PO DAILY PRN Constipation Past History Travel History Traveled to [place] past 21 day No Medical History Neurological: seizure, TIA, HSV ENCEPHALITIS TRANSIENT GLOBAL AMNESIA MIGRAINES W/AURA EENT: NONE Cardiovascular: hypertension Respiratory: NONE Gastrointestinal: NONE Hepatic: NONE Renal: NONE Musculoskeletal: NONE Psychiatric: NONE Endocrine: hypothyroidism Blood Disorders: NONE Cancer(s): NONE 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 Home Who Do You Live With? spouse Services at Home: None Primary Language: Turkmen Smoking Status: Never Smoked ETOH Use: 1-2 glasses of wine daily Illicit Drug Use: denies illicit drug use Living Will? no Functional Ability ADLs Independent: dressing, eating, toileting, bathing. Ambulation: independent IADLs Independent: shopping, housework, food prep, telephone, transportation. Needs Assist: medication admin. Review of Systems Review of Systems All Other Systems: Reviewed and Negative Exam & Diagnostic Data Last 24 Hrs of Vital Signs/I&O Vital Signs Date Time Temp Pulse Resp B/P B/P Pulse O2 O2 Flow FiO2 Mean Ox Delivery Rate 03/26 0750 98.8 58 18 134/66 97 Room Air 03/26 0546 97.5 66 18 126/59 96 Room Air 03/26 0314 97.5 63 18 159/72 97 Room Air 03/26 0129 98.6 79 18 144/65 97 Room Air 03/25 2332 97.5 68 18 132/62 97 Room Air 03/25 2104 99.5 78 19 147/68 97 Room Air 03/25 2011 78 172/84 03/25 2009 99.1 76 19 172/84 96 Room Air 03/25 1856 Room Air Room Air 03/25 1837 99.1 90 19 197/81 98 Room Air Intake & Output 03/26 1600 03/26 0800 02/04 0000 Intake Total 350 10 Output Total Balance 350 10 Intake, IV 350 10 Patient 125 lb Weight Weight Reported by Patient Measurement Method Physical Exam Other Physical Findings: Afebrile. She is awake and alert, disoriented to time, but in no acute distress. Skin reveals no rash. HEENT negative. Neck is supple with no adenopathy. Lungs are clear. Heart regular rhythm with no murmur. Abdomen is soft, nontender with positive bowel sounds. Back no CVA tenderness. Extremities no cyanosis, clubbing or edema. Neuro is without focality. Last 24 Hours of Lab Results: Laboratory Tests 03/26 03/25 03/25 03/25 0138 2044 2044 2003 Chemistry Sodium (137 - 145 mmol/L) 141 Potassium (3.5 - 5.1 mmol/L) 4.2 Chloride (98 - 107 mmol/L) 104 Carbon Dioxide (22 - 30 mmol/L) 25 Anion Gap (5 - 16) 12 BUN (7 - 17 mg/dL) 21 H Creatinine (0.5 - 1.0 mg/dL) 0.7 Estimated GFR (>60 ml/min) > 60 BUN/Creatinine Ratio (7 - 25 %) 30.0 H Glucose (65 - 99 mg/dL) 126 H Lactic Acid (0.7 - 2.1 mmol/L) 1.0 Calcium (8.4 - 10.2 mg/dL) 9.6 Total Bilirubin (0.2 - 1.3 mg/dL) 0.5 Direct Bilirubin (< 0.4 mg/dL) 0.2 AST (14 - 36 U/L) 22 ALT (9 - 52 U/L) 30 Alkaline Phosphatase (<127 U/L) 92 Troponin I (< 0.11 ng/ml) < 0.01 Total Protein (6.3 - 8.2 g/dL) 7.0 Albumin (3.5 - 5.0 g/dL) 4.5 Vitamin B12 (239 - 931 pg/mL) > 1000 H Folate (2.76 - 20.0 ng/mL) 6.5 TSH (0.270 - 4.200 uIU/mL) 1.200 Free T4 (0.78 - 2.44 ng/dL) 1.24 Other Body Source CSF WBC (0 - 5 /CUMM) 2 CSF RBC (-0 /CUMM) 2 H CSF Comment CSF Glucose (40 - 70 mg/dL) 60 CSF Total Protein (12 - 60 mg/dL) 79 H Serology Herpes Simplex Source Pending HSV I DNA PCR Pending HSV II DNA PCR Pending Toxicology Methadone Screen Cancelled Barbiturate Screen Cancelled Ur Phencyclidine Scrn Cancelled Amphetamines Screen Cancelled U Benzodiazepines Scrn Cancelled Urine Cocaine Screen Cancelled Urine Cannabis Screen Cancelled 03/25 03/25 1926 191 Hematology CBC w Diff NO MAN DIFF REQ WBC (4.8 - 10.8 /CUMM) 6.2 RBC (4.20 - 5.40 /CUMM) 4.81 Hgb (12.0 - 16.0 G/DL) 14.7 Hct (37 - 47 %) 43.3 MCV (81.0 - 99.0 FL) 90.2 MCH (27.0 - 31.0 PG) 30.5 MCHC (33.0 - 37.0 G/DL) 33.8 RDW (11.5 - 14.5 %) 12.9 Plt Count (130 - 400 /CUMM) 231 MPV (7.4 - 10.4 FL) 7.8 Gran % (42.2 - 75.2 %) 67.4 Lymphocytes % (20.5 - 51.1 %) 26.7 Monocytes % (1.7 - 9.3 %) 4.8 Eosinophils % (0 - 5 %) 0.6 Basophils % (0.0 - 2.0 %) 0.5 Absolute Granulocytes (1.4 - 6.5 /CUMM) 4.2 Absolute Lymphocytes (1.2 - 3.4 /CUMM) 1.6 Absolute Monocytes (0.10 - 0.60 /CUMM) 0.3 Absolute Eosinophils (0.0 - 0.7 /CUMM) 0 Absolute Basophils (0.0 - 0.2 /CUMM) 0 Toxicology Urine Opiates Screen (>2000 NG/ML) < 100.00 Methadone Screen (>300 NG/ML) < 40 Barbiturate Screen (>200 NG/ML) < 60 Ur Phencyclidine Scrn (>25 NG/ML) < 6.00 Amphetamines Screen (>1000 NG/ML) < 100 U Benzodiazepines Scrn (>200 NG/ML) < 85 Urine Cocaine Screen (>300 NG/ML) < 50 Urine Cannabis Screen (>50 NG/ML) < 5.00 Urines Urine Color (YEL,AMB,STR) STRAW Urine Clarity (CLEAR) CLEAR Urine pH (5.0 - 8.0) 6.0 Ur Specific [place] (1.001 - 1.035) 1.010 Urine Protein (NEG,<30 MG/DL) NEG Urine Ketones (NEG) NEG Urine Nitrite (NEG) NEG Urine Bilirubin (NEG) NEG Urine Urobilinogen (0.1 - 1.0 EU/dl) 0.2 Ur Leukocyte Esterase (NEG) NEG Ur Microscopic SEDIMENT EXAMINED Urine RBC (0 - 5 /HPF) FEW H Urine WBC (0 - 2 /HPF) RARE Ur Epithelial Cells (NONE,FEW) RARE Urine Bacteria (NEG/NONE) RARE H Urine Mucus (FEW,NONE) RARE Urine Hemoglobin (NEG) TRACE-INTACT Urine Glucose (N MG/DL) NEG Last 24 Hours of Titi Results: CSF culture March 25 negative Diagnostic Data Recent Imaging Findings: Chest x-ray negative CT of the head reveals a right temporal lobe encephalomalacia. Assessment/Plan Assessment/Plan Impression: This is a 77-year-old woman with a history of hypothyroidism, hypertension, status post TIA, seizure disorder, maintained on Keppra, several episodes of transient global amnesia, hospitalized nearly 1 1/2 years prior to admission with HSV encephalitis, admitted on March 25 with the acute onset of confusion and memory loss, found to be afebrile with a normal white blood cell count, a CSF revealing a slightly decreased glucose (compared to serum) and a mildly elevated protein and with a CT of the head negative for any acute process. The etiology of her altered mental status is unclear. She has no white blood cells in her CSF to suggest an encephalitis, though her glucose is slightly less than half of her serum glucose and her protein is elevated. This could represent another episode of "transient global amnesia", given her history of several previous episodes, though these may have been secondary to subclinical seizures. She has no fever to suggest an infectious process and, as she has reportedly improved to some extent, feel that she can be followed off antibiotics pending further evaluation. Suggestion: 1. MRI of the head and EEG 2. Neurology evaluation 3. Follow-up CSF HSV PCR and culture 4. Consider repeat LP if she does not improve 5. Follow off antibiotics pending above Consult Acknowledgment - Thank you for your consult request.
--- NOTE | 2017-03-26 14:16 | Cons- Neurology ---
General Information and HPI Consulting Request Date of Consult: 03/26/17 Requested By: Beatrice Stewart MD History of Present Illness: 77-year-old female well known to me with history of seizure disorder, stable on Keppra, and a bout of HSV encephalitis which occurred after her prior diagnosis of seizure disorder, presents with an episode of bewilderment and memory disturbance. The patient had visited her sister and upon returning home, in the presence of her , complained of feeling unwell. She then appeared to have poor recollection of the visit that she had just completed and would repeat herself. There was no associated headache, involuntary movements, recent fever or intercurrent infection. She was subsequently brought to the [facility] emergency room. Today, she appears back to baseline. The patient herself is unable to provide much history; the aforementioned was obtained by speaking to her via the phone. CAT scan of the head showed evidence of old right temporal encephalomalacia. There were no acute abnormalities. There was no fever. She has been empirically started on broad-spectrum antibiotics and Acyclovir. Allergies/Medications Allergies: Coded Allergies: No Known Allergies (10/27/15) Home Med List: Acetaminophen (Tylenol) 325 MG TABLET 650 MG PO Q4P PRN FEVER Acyclovir Sodium 50 MG/1 ML VIAL 600 MG IV Q8H HSV2 encephalitis Please take until 11/12/15 Biotin 2,500 MCG CAPSULE 2 CAP PO DAILY SUPPLEMENT (Reported) Calcium Carbonate/Vitamin D3 (Caltrate 600 + D Tablet) 1 EACH TABLET 1 TAB PO BID SUPPLEMENT (Reported) Cholecalciferol (Vitamin D3) (Vitamin D3) 400 UNIT TABLET 2 TAB PO DAILY SUPPLEMENT (Reported) Levetiracetam (Keppra) 500 MG TABLET 1,500 MG PO DAILY Seizure disorder Please follow up with your neurologist as the dose has been changed. Magnesium Oxide (Magnesium) 500 MG CAPSULE 1 CAP PO BID SUPPLEMENT (Reported) [place]-3 Fatty Acids/Fish Oil (Fish Oil 1,000 MG Capsule) 1 EACH CAPSULE 1 CAP PO DAILY supplement (Reported) Oxybutynin Chloride (Oxybutynin Chloride ER) 10 MG TAB.ER.24 1 TAB PO DAILY BLADDER (Reported) Polyethylene Glycol 3350 (Miralax) 119 GM POWDER 17 GM PO DAILY PRN CONSTIPATION Sennosides/Docusate Sodium (Senna Plus Tablet) 1 EACH TABLET 2 TAB PO DAILY PRN Constipation Review of Systems Review of Systems: Negative for recent fever, chills, rash, head pain, diplopia, dysphagia, chest pain, shortness of breath, vomiting, vertigo, gait ataxia, joint inflammation or bleeding abnormalities Past History Travel History Traveled to [place] past 21 day No Medical History Neurological: seizure, TIA, HSV ENCEPHALITIS TRANSIENT GLOBAL AMNESIA MIGRAINES W/AURA EENT: NONE Cardiovascular: hypertension Respiratory: NONE Gastrointestinal: NONE Hepatic: NONE Renal: NONE Musculoskeletal: NONE Psychiatric: NONE Endocrine: hypothyroidism Blood Disorders: NONE Cancer(s): NONE FIRE APPARATUS ENGINEER/Reproductive: NONE Surgical History Surgical History: s/p resection of bladder mass ?neoplasm Family History Relations & Conditions If Any: Relation not specified for: *No pertinent family history Psychosocial History Where Do You Live? Home Who Do You Live With? spouse Services at Home: None Primary Language: Romansh Smoking Status: Never Smoked ETOH Use: 1-2 glasses of wine daily Illicit Drug Use: denies illicit drug use Living Will? no Functional Ability ADLs Independent: dressing, eating, toileting, bathing. Ambulation: independent IADLs Independent: shopping, housework, food prep, telephone, transportation. Needs Assist: medication admin. Exam & Diagnostic Data Vital Signs and I&O Vital Signs Date Time Temp Pulse Resp B/P B/P Pulse O2 O2 Flow FiO2 Mean Ox Delivery Rate 03/26 1302 97.7 62 20 149/67 97 03/26 1016 97.9 62 18 128/70 98 Room Air 03/26 0750 98.8 58 18 134/66 97 Room Air 03/26 0546 97.5 66 18 126/59 96 Room Air 03/26 0314 97.5 63 18 159/72 97 Room Air / 0129 98.6 79 18 144/65 97 Room Air 03/25 2332 97.5 68 18 132/62 97 Room Air 03/25 2104 99.5 78 19 147/68 97 Room Air 03/25 2011 78 172/84 03/25 2009 99.1 76 19 172/84 96 Room Air 03/25 1856 Room Air Room Air 03/25 1837 99.1 90 19 197/81 98 Room Air Intake & Output 03/26 1600 / 0800 02/04 0000 Intake Total 350 10 Output Total Balance 350 10 Intake, IV 350 10 Patient 125 lb Weight Weight Reported by Patient Measurement Method Pleasant elderly female appearing younger than stated age. She was awake, alert and cooperative. Speech was fluent. She knew the name of the current president. Object recall was 3 out of 3 at 5 minutes. She knew the names of the teams which will compete in the [employer]. Pupils were equal and reactive. Extraocular movements were full. There was no nystagmus. There was no field cut. Face was symmetric. Hearing was normal. Tongue was midline. The motor examination showed no drift of the upper extremities. There was no focal or lateralizing weakness. Deep tendon reflexes were symmetric. Plantar responses were flexor. Fine finger movements and rapid alternating movements performed normally. Sensory examination was normal to primary modalities. Gait was untested. Assessment/Plan Assessment: The patient's presentation is suggestive of transient global amnesia. She now appears back to baseline. Nonconvulsive seizure would remain in the differential diagnosis however is considered less likely. I have very little suspicion for this representing a recurrent encephalitis or infectious problem Recommendations: I would continue her on her maintenance dosage of Keppra 750 mg twice daily. A repeat EEG would be requested. I would endorse aspirin 81 mg per day. Would discontinue antibiotic coverage with the approval of infectious disease. Hopefully she will be discharged home after a brief period of observation. Consult Acknowledgment - Thank you for your consult request.
[2017-03-26 18:17] VITALS: BP 122/52
[2017-03-27 06:20] VITALS: BP 132/74
--- NOTE | 2017-03-27 07:29 | PN- Housestaff ---
Ozzie GALLEGOS,Ervin 03/27/17 0729: Subjective Follow-up For: AMS Subjective: Patient is seen and examined at bedside. Afebrile overnight. She is very alert and oriented 3 with appropriate mood. She does express anxious about going for an MRI. She does not endorse any confusion, fever, chills, headaches. No acute overnight events such as seizures, hallucinations, reported by nursing staff. Review of Systems Constitutional: Reports: see HPI. EENTM: Reports: no symptoms. Cardiovascular: Reports: no symptoms. Respiratory: Reports: no symptoms. Gastrointestinal: Reports: no symptoms. Genitourinary: Reports: no symptoms. Musculoskeletal: Reports: no symptoms. Skin: Reports: no symptoms. Neurological/Psychological: Reports: no symptoms. Objective Last 24 Hrs of Vital Signs/I&O Vital Signs Date Time Temp Pulse Resp B/P B/P Pulse O2 O2 Flow FiO2 Mean Ox Delivery Rate 03/27 06 98.3 60 18 132/74 98 Room Air 03/26 1817 98.1 68 18 122/52 96 Room Air 03/26 1729 74 20 146/62 98 / 1302 97.7 62 20 149/67 97 Intake & Output 03/27 1600 03/27 0800 / 0000 Intake Total 360 400 Output Total Balance 360 400 Intake, Oral 360 400 Patient 54.431 kg Weight Physical Exam General Appearance: Alert, Oriented X3, Cooperative Skin: No Rashes, No Breakdown Cardiovascular: Regular Rate, Normal S1, Normal S2 Lungs: Clear to Auscultation, Normal Air Movement Abdomen: Normal Bowel Sounds, Soft, No Tenderness Neurological: Normal Speech, Strength at 5/5 X4 Ext, Normal Tone, Sensation Intact Assessment/Plan Assessment: Patient is a 77 y/o female with PMH of seizure disorder on Kera, HSV encephalitis (2017), TIA, transient global amnesia and HTN presenting with AMS with expressive dysphasia and amensia. Patient was worked up for AMS. Head CT and CXR were negative. LP was performed showing WBC: 2, RBC: 2, Glucose: 60, Total Protein: 79. Remainder of labs including CBC, electrolytes, vitamin B12 and folate, TSH and freeT4 were normal. Utox was negative. Patient on examination had no recollection of the events that brought her into the hospital. Patient is now A&O x3. Patient today was evaluated by ID and neurology and likely has transient global amnesia. Patient is being observed off antibiotics/antiretroviral therapy. HSV PCR pending. 1. AMS likely Global Transient Amnesia - follow up [employer] HSV PCR - follow up CSF culture - continue Kepra 750mg BID - continue MVM, thiamine, aspirin - EEG pending --Holding off on MRI (she has remained afebrile, with regaining of her baseline mental status making HSV less likely). 2. Hyperkalemia Mild. Will continue to trend. DVT PPx: Lovenox Code: Full code Diet: Regular diet Problem List: 1. Altered mental status Pain Ratin Pain Location: none Pain Goal: Remain pain free Pain Plan: Per pathway Tomorrow's Labs & Rationales: CBC BEP Marshall GALLEGOS,Terra 03/27/17 1201: Attending MD Review Statement Attending Statement Attending MD Statement: examined this patient, discuss w/resident/PA/[employer], agreed w/resident/PA/[employer], reviewed EMR data (avail), discussed with nursing, discussed with case mgmt, reviewed images, amended to note Attending Assessment/Plan: Patient seen and examined, feels overall better. Memory is back to baseline. Patient remains afebrile. Vital Signs Date Time Temp Pulse Resp B/P B/P Pulse O2 O2 Flow FiO2 Mean Ox Delivery Rate 03/27 06 98.3 60 18 132/74 98 Room Air 03/26 1817 98.1 68 18 122/52 96 Room Air 03/26 1729 74 20 146/62 98 03/26 1302 97.7 62 20 149/67 97 on exam: aox3, nad. cv; s1,s2, rrr resp; clear abd; soft, nt, bs+ ext; no edema. Laboratory Tests 03/27 812 Chemistry Sodium (137 - 145 mmol/L) 139 Potassium (3.5 - 5.1 mmol/L) 5.4 H Chloride (98 - 107 mmol/L) 101 Carbon Dioxide (22 - 30 mmol/L) 30 Anion Gap (5 - 16) 9 BUN (7 - 17 mg/dL) 21 H Creatinine (0.5 - 1.0 mg/dL) 0.7 Estimated GFR (>60 ml/min) > 60 BUN/Creatinine Ratio (7 - 25 %) 30.0 H Glucose (65 - 99 mg/dL) 100 H Calcium (8.4 - 10.2 mg/dL) 9.8 Hematology CBC w Diff NO MAN DIFF REQ WBC (4.8 - 10.8 /CUMM) 4.7 L RBC (4.20 - 5.40 /CUMM) 4.57 Hgb (12.0 - 16.0 G/DL) 14.1 Hct (37 - 47 %) 42.0 MCV (81.0 - 99.0 FL) 91.8 MCH (27.0 - 31.0 PG) 30.8 MCHC (33.0 - 37.0 G/DL) 33.5 RDW (11.5 - 14.5 %) 12.8 Plt Count (130 - 400 /CUMM) 273 MPV (7.4 - 10.4 FL) 7.9 Gran % (42.2 - 75.2 %) 43.9 Lymphocytes % (20.5 - 51.1 %) 41.7 Monocytes % (1.7 - 9.3 %) 10.2 H Eosinophils % (0 - 5 %) 3.3 Basophils % (0.0 - 2.0 %) 0.9 Absolute Granulocytes (1.4 - 6.5 /CUMM) 2.1 Absolute Lymphocytes (1.2 - 3.4 /CUMM) 2.0 Absolute Monocytes (0.10 - 0.60 /CUMM) 0.5 Absolute Eosinophils (0.0 - 0.7 /CUMM) 0.2 Absolute Basophils (0.0 - 0.2 /CUMM) 0 A/P; 77 y/o F with pmh sig for seizure disorder on Kera, HSV encephalitis ( 2017), TIA, transient global amnesia and HTN presenting with AMS with expressive dysphasia and amensia. There was some concern about possible HSV encephalitis. LP was done and it was nondiagnostic. PCR was sent which is still pending. EEG spending. Patient is claustrophobic and does not want have a closed MRI done if possible. Neuro did not recommend MRI. After seen by infectious disease and if no MRI indicated, patient can likely be discharged home after the EEG. She's back to her baseline and has been continued on her home medications. She can follow-up in neurology and her primary care doctor as an outpatient.
[2017-03-27 10:32] LABS: ABSOLUTE BASOPHIL COUNT 0 /CUMM (0.0-0.2); ABSOLUTE EOSINOPHIL COUNT 0.2 /CUMM (0.0-0.7); ABSOLUTE GRANULOCYTE CT 2.1 /CUMM (1.4-6.5); ABSOLUTE MONOCYTE COUNT 0.5 /CUMM (0.10-0.60); BASOPHIL % 0.9 % (0.0-2.0); EOSINOPHIL % 3.3 % (0-5); GRANULOCYTE % 43.9 % (42.2-75.2); MEAN CORPUSCULAR HGB 30.8 PG (27.0-31.0); MEAN CORPUSCULAR HGB CONC 33.5 G/DL (33.0-37.0); MEAN CORPUSCULAR VOLUME 91.8 FL (81.0-99.0); MEAN PLATELET VOLUME 7.9 FL (7.4-10.4); PLATELET COUNT 273 /CUMM (130-400); RBC DISTRIBUTION WIDTH 12.8 % (11.5-14.5); RED BLOOD CELL CT 4.57 /CUMM (4.20-5.40); WHITE BLOOD CELL COUNT 4.7 /CUMM (4.8-10.8)
--- NOTE | 2017-03-27 13:00 | ELECTROENCEPHALOGRAM REPORT ---
Electroencephalogram Report Electroencephalogram Results Date of service: 03/27/17 Attending MD: Beatrice Stewart MD Dramatic Teacher: Antonio Ray EEG Number: [id number] Test Utilizes: 10-20 system, 21 lead 18 channel digital recording Pertinent Hx/Physical/Neuro Findings/Clin Diagnosis: Transient confusion. History of seizures and encephalitis, on Keppra. Inpatient Medications: Current Medications Sig/James Start time Last Medication Dose Route Stop Time Status Admin Aspirin 81 MG DAILY 03/27 1000 AC 03/27 PO 0943 Enoxaparin Sodium 40 MG DAILY 03/26 1030 AC 03/27 SC 0948 Levetiracetam 750 MG BID 03/26 1000 AC 03/27 PO 0943 Multivitamins 1 TAB DAILY 03/26 1000 AC 03/27 PO 0943 Thiamine HCl 0 .STK-MED ONE 03/26 1615 DC PO Thiamine HCl 200 MG TID 03/26 0145 AC 03/27 PO 03/28 0000 0942 Interpretation: The predominant posterior background rhythm consists of well-modulated, medium voltage 8-9 cps activity which attenuates to eye opening. Lower voltage faster frequencies were seen over the anterior head regions bilaterally. Generalized slowing of the background is seen during periods of drowsiness. No focal, paroxysmal or lateralizing features were appreciated. Hyperventilation was deferred. Photic stimulation induced no abnormalities. Impression: Normal EEG
[2017-03-27] MEDS ORDERED: KEPPRA500 M1 PO (13:16)
[2017-03-27] MEDS ORDERED: ASPIRIN81 M4 PO (13:18)
--- NOTE | 2017-03-27 13:58 | Patient Discharge Instructions ---
Discharge Instructions General Discharge Information You were seen/treated for: CONFUSION Special Instructions: PLEASE CONTINUE TAKIMG KEPPRA 750 MG TWICE DAILY. DO NOT TAKE THE 3 TABLETS OF 500MG ONCE DAILY THE WAY YOU USED TO. WE HAVE PROVIDED YOU WITH A HARD COPY FOR YOUR KEPPRA 750MG PRESCRIPTION. PLEASE SEEK IMMEDIATE MEDICAL ATTENTION IF YOU DEVELOP CONFUSION OR FEVERS PLEASE GET YOUR POTASSIUM CHECKED IN 2 DAYS (A PRESCRPTION HAS BEEN PROVIDED). PLEASE FOLLOW UP WITH YOUR PCP WITHIN 1 WEEK Acute Coronary Syndrome Inclusion Criteria At DC or during hospital stay patient has or had the following: ACS DIAGNOSIS No Discharge Core Measures Meds if any: Prescribed or Continued at Discharge Meds if any: NOT Prescribed or Continued at Discharge Congestive Heart Failure Inclusion Criteria At DC or during hospital stay patient has or had the following: CHF DIAGNOSIS No Discharge Core Measures Meds if any: Prescribed or Continued at Discharge Meds if any: NOT Prescribed or Continued at Discharge Cerebrovascular accident Inclusion Criteria At DC or during hospital stay patient has or had the following: CVA/TIA Diagnosis No Discharge Core Measures Meds if any: Prescribed or Continued at Discharge Meds if any: NOT Prescribed or Continued at Discharge Venous thromboembolism Inclusion Criteria VTE Diagnosis No VTE Type NONE VTE Confirmed by (Test) NONE Discharge Core Measures - Per Current guidelines, there needs to be overlap - treatment for the first 5 days of Warfarin therapy. - If discharged on Warfarin prior to 5 days of - overlap therapy, the patient will need to be - assessed for post discharge needs including - *Post discharge parental anticoagulation - *Warfarin and/or parental anticoagulation education - *Follow up date to check INR post discharge At least 5 days overlap therapy as Inpatient No Meds if any: Prescribed or Continued at Discharge Note: Overlap Therapy is Warfarin and Anticoagulant Meds if any: NOT Prescribed or Continued at Discharge
[2017-03-27] MEDS ORDERED: KEPPRA750 M1 PO (14:03)
[2017-03-27 14:28] VITALS: BP 130/80
--- NOTE | 2017-03-27 14:29 | PN- Infect Dx ---
Subjective Subjective: Afebrile without complaints Objective Last 24 Hrs of Vital Signs/I&O Vital Signs Date Time Temp Pulse Resp B/P B/P Pulse O2 O2 Flow FiO2 Mean Ox Delivery Rate 03/27 619 98.3 60 18 132/74 98 Room Air 03/26 1817 98.1 68 18 122/52 96 Room Air 03/26 1729 74 20 146/62 98 Intake & Output 03/27 1600 03/27 0800 03/27 0000 Intake Total 360 400 Output Total Balance 360 400 Intake, Oral 360 400 Patient 120 lb Weight Physical Exam Other Physical Findings: She is awake and alert, oriented 3, in no acute distress HEENT no photophobia Neck is supple with no adenopathy Lungs are clear Neuro without focality Results Last 24 Hours of Lab Results: Laboratory Tests 03/27 812 Chemistry Sodium (137 - 145 mmol/L) 139 Potassium (3.5 - 5.1 mmol/L) 5.4 H Chloride (98 - 107 mmol/L) 101 Carbon Dioxide (22 - 30 mmol/L) 30 Anion Gap (5 - 16) 9 BUN (7 - 17 mg/dL) 21 H Creatinine (0.5 - 1.0 mg/dL) 0.7 Estimated GFR (>60 ml/min) > 60 BUN/Creatinine Ratio (7 - 25 %) 30.0 H Glucose (65 - 99 mg/dL) 100 H Calcium (8.4 - 10.2 mg/dL) 9.8 Hematology CBC w Diff NO MAN DIFF REQ WBC (4.8 - 10.8 /CUMM) 4.7 L RBC (4.20 - 5.40 /CUMM) 4.57 Hgb (12.0 - 16.0 G/DL) 14.1 Hct (37 - 47 %) 42.0 MCV (81.0 - 99.0 FL) 91.8 MCH (27.0 - 31.0 PG) 30.8 MCHC (33.0 - 37.0 G/DL) 33.5 RDW (11.5 - 14.5 %) 12.8 Plt Count (130 - 400 /CUMM) 273 MPV (7.4 - 10.4 FL) 7.9 Gran % (42.2 - 75.2 %) 43.9 Lymphocytes % (20.5 - 51.1 %) 41.7 Monocytes % (1.7 - 9.3 %) 10.2 H Eosinophils % (0 - 5 %) 3.3 Basophils % (0.0 - 2.0 %) 0.9 Absolute Granulocytes (1.4 - 6.5 /CUMM) 2.1 Absolute Lymphocytes (1.2 - 3.4 /CUMM) 2.0 Absolute Monocytes (0.10 - 0.60 /CUMM) 0.5 Absolute Eosinophils (0.0 - 0.7 /CUMM) 0.2 Absolute Basophils (0.0 - 0.2 /CUMM) 0 Last 24 Hours of Titi Results: CSF culture March 25 negative Recent Imaging Studies: EEG March 27 reveals no focal, paroxysmal or lateralizing features Assessment/Plan Impression: Stable off antibiotics with temperatures and white blood cell count remaining normal and with no further confusion or disorientation noted. Her EEG is normal and, in view of the fact that she appears to be back to her baseline, feel that further workup can be deferred at this time. At this point the most likely etiology of her episode of altered mental status appears to be transient global amnesia. Suggestion: 1. Further evaluation if indicated per Neurology 2. Follow-up CSF HSV PCR and culture 3. Continue to follow off antibiotics
--- NOTE | 2017-04-03 18:19 | Discharge Summary ---
Visit Information Visit Dates Admission Date: 03/25/17 Discharge Date: 03/27/17 Hospital Course Course Attending Physician: Terra Olivares MD Primary Care Physician: Kennedy Norris MD Hospital Course: Patient is a 77 y/o female with PMH of seizure disorder on Keppra, HSV encephalitis (2017), TIA, transient global amnesia and HTN presenting with AMS with expressive dysphasia and amensia. On admission: Vitals: T max 99.5, pulse in 90, RR 19, blood pressure 197/81 decreased to 132/ 82 after IV labetalol, saturating well on room air. On exam: A O 2, well groomed, poor recall, delayed responses, able to add "7+7 " without any problem till 49, no neck stiffness , ears have wax, no pharyngeal congestion, sinus tenderness, neck tenderness, complete neurological examination unremarkable, cooperative, no acute distress, neck supple, JVD normal, no lymphadenopathy, mucosa moist, no dependent edema, no obvious skin rashes or inflammation CVS: S1-S2, RRR. RS: Clear to auscultate bilaterally. Abdomen: Soft , NT, ND, bowel sounds present. Labs: WBC: 6.2. H/H 14.7/43.3. Platelets 231. 141. K: 4.2. BUN: 21. CR: 0.7. LFTs and UA unremarkable. CSF: Clear, colorless WBC 2, RBC 2, glucose 60, protein 79 Imaging: CXR: No acute cardiopulmonary changes CT head: No acute intracranial process seen. 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 On previous MRI white matter changes were seen in temporal lobe suspicious for herpes simplex encephalitis. Patient was initially admitted to telemetry and then transferred to the general medicine floor for management of the followin. AMS likely due to Global Transient Amnesia: Patient was worked up for possible etiologies of AMS, including infections, electrolyte abnormalities, neurologic causes such as CVA/TIA and nonconvulsive seizures, thyroid disorder and medications/drug related causes. Head CT and CXR were negative. LP was done for concern of HSV encephalitis as patient has history. LP results were not consistent with a viral infection. Patient was observed off antiretrovrials. HSV PCR was sent which was negative. CSF culture remained with no growth. Remainder of labs including CBC, electrolytes, vitamin B12 and folate, TSH and freeT4 were normal. Utox was negative. Patient had an EEG this admission which was read as normal. Patient was evaluated by ID and neurology. Patient had resolution of symptoms on day of admission with no recollection of the events that brought her in and was observed with no recurrence in symptoms. Patient was stable for discharge home. * Please continue Keppra 750mg BID * Please follow up with neurology * Please have potassium checked in 2 days (Patient's K+ increased slightly during this admission) Allergies: Coded Allergies: No Known Allergies (10/27/15) Significant Procedures: Electroencephalogram Report Electroencephalogram Results Date of service: 03/27/17 Attending MD: Beatrice Stewart MD Airline Reservation Agent: Antonio Ray EEG Number: [id number] Test Utilizes: 10-20 system, 21 lead 18 channel digital recording Pertinent Hx/Physical/Neuro Findings/Clin Diagnosis: Transient confusion. History of seizures and encephalitis, on Keppra. Inpatient Medications: Current Medications Sig/James Start time Last Medication Dose Route Stop Time Status Admin Aspirin 81 MG DAILY 03/27 1000 AC /05 PO 0943 Enoxaparin Sodium 40 MG DAILY 03/26 1030 AC /05 SC 0948 Levetiracetam 750 MG BID 03/26 1000 AC 02/05 PO 0943 Multivitamins 1 TAB DAILY 03/26 1000 AC /05 PO 0943 Thiamine HCl 0 .STK-MED ONE 03/26 1615 DC PO Thiamine HCl 200 MG TID 03/26 0145 AC /05 PO 03/28 0000 0942 Interpretation: The predominant posterior background rhythm consists of well-modulated, medium voltage 8-9 cps activity which attenuates to eye opening. Lower voltage faster frequencies were seen over the anterior head regions bilaterally. Generalized slowing of the background is seen during periods of drowsiness. No focal, paroxysmal or lateralizing features were appreciated. Hyperventilation was deferred. Photic stimulation induced no abnormalities. Impression: Normal EEG Pertinent Lab Results: SERVICE DATE: 03/25/17 EXAM TYPE: RAD - XRY-CHEST XRAY, TWO VIEWS EXAMINATION: XR CHEST CLINICAL INFORMATION: Fever. COMPARISON: Chest portable 11/03/2015. TECHNIQUE: 2 views of the chest were obtained. FINDINGS: Both lungs are well-expanded and clear of acute process. The heart size and pulmonary vascularity is normal. There is mild dextroscoliosis of dorsal spine. No lytic process. IMPRESSION: Unremarkable chest exam. SERVICE DATE: 03/25/17 EXAM TYPE: CAT - CT HEAD WO IV CONTRAST EXAMINATION: CT HEAD WITHOUT CONTRAST CLINICAL INFORMATION: Confusion and hypertension. COMPARISON: MRI brain 10/30/2015. TECHNIQUE: Contiguous axial imaging was performed from the skull base to vertex without intravenous administration of contrast. DLP: 614 mGy-cm FINDINGS: There is no evidence of acute intracranial hemorrhage or territorial infarction. 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 No abnormal mass effect or midline shift is seen. Holly to white matter differentiation is well preserved. No extra-axial fluid collections are identified. The lateral ventricles are enlarged and so are the cortical sulci. There is ex vacuo dilatation of right temporal horn lateral ventricle secondary to encephalomalacia. There is no abnormal attenuation within the brain parenchyma. The osseous structures and soft tissues are normal. The mastoid air cells and visualized portions of the paranasal sinuses are well aerated. IMPRESSION: No acute intracranial process seen. 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 On previous MRI white matter changes were seen in temporal lobe suspicious for herpes simplex encephalitis. Disposition Summary Disposition Principal Diagnosis: Global Transient Amnesia Additional Diagnosis: H/O HSV Encephalitis, H/O Seizure disorder, H/O TIA, H/O HTN Discharge Disposition: home or self care Discharge Instructions General Discharge Information Code Status: Full Code Patient's Diet: Regular Diet Patient's Activity: Self-Limited Follow-Up Instructions/Appts: 1. PLEASE CONTINUE TAKIMG KEPPRA 750 MG TWICE DAILY. DO NOT TAKE THE 3 TABLETS OF 500MG ONCE DAILY THE WAY YOU USED TO. WE HAVE PROVIDED YOU WITH A HARD COPY FOR YOUR KEPPRA 750MG PRESCRIPTION. 2. PLEASE SEEK IMMEDIATE MEDICAL ATTENTION IF YOU DEVELOP CONFUSION OR FEVERS 4. PLEASE GET YOUR POTASSIUM CHECKED IN 2 DAYS (A PRESCRPTION HAS BEEN PROVIDED) . 5. PLEASE FOLLOW UP WITH YOUR PCP WITHIN 1 WEEK Medications at Discharge Discharge Medications: Stop taking the following medications: Acyclovir Sodium (Acyclovir Sodium) 50 MG/1 ML VIAL INTRAVEN Q8H Qty = 17 Continue taking these medications: Oxybutynin Chloride (Oxybutynin Chloride ER) 10 MG TAB.ER.24 1 Tablet ORAL DAILY Qty = 90 Comments: NOT GIVEN IN THE HOSPITAL Calcium Carbonate/Vitamin D3 (Caltrate 600 + D Tablet) 1 EACH TABLET 1 Tablet ORAL TWICE DAILY Comments: NOT GIVEN IN HOSPITAL Cholecalciferol (Vitamin D3) (Vitamin D3) 400 UNIT TABLET 2 Tablet ORAL DAILY Comments: NOT GIVEN IN THE HOSPITAL Biotin (Biotin) 2,500 MCG CAPSULE 2 Capsule ORAL DAILY Comments: NOT GIVEN IN THE HOSPITAL [place]-3 Fatty Acids/Fish Oil (Fish Oil 1,000 MG Capsule) 1 EACH CAPSULE 1 Capsule ORAL DAILY Comments: NOT GIVEN IN HOSPITAL Magnesium Oxide (Magnesium) 500 MG CAPSULE 1 Capsule ORAL TWICE DAILY Comments: NOT GIVEN IN HOSPITAL Acetaminophen (Tylenol) 325 MG TABLET 650 Milligram ORAL EVERY 4 HOURS NEEDED as needed for FEVER Qty = 30 Comments: NOT GIVEN IN HOSPITAL Polyethylene Glycol 3350 (Miralax) 119 GM POWDER 17 Gram ORAL DAILY as needed for CONSTIPATION Days = 30 Sennosides/Docusate Sodium (Senna Plus Tablet) 1 EACH TABLET 2 Tablet ORAL DAILY as needed for Constipation Days = 30 Start taking the following new medications: Levetiracetam (Keppra) 750 MG TABLET 1 Tablet ORAL TWICE DAILY Qty = 60 No Refills Comments: LAST RECIEVED 03/27/17 AT 9:00 AM Aspirin (Aspirin*) 81 MG TAB.CHEW 81 Milligram ORAL DAILY Qty = 30 No Refills Comments: Last Taken: 03/27/17 Time: 10:00 am Copies To: Jr GALLEGOS,Kennedy Barillas
== END 2017-03-27 14:55 | DRG 72 ==
LOC: ERH 18:31 → ERHI 21:13 → 2NA 21:13 → EDBEDREQ 03-26 15:48 → ENRESERV 03-26 16:13 → ENTRNSPT 03-26 17:24 → EDTRNSPTSTS 03-26 17:35 → EDTRNSPT 03-26 17:35 → CMPTRNSPT 03-26 17:55 → 2NA 03-26 18:01 → ENPENDDIS 03-27 14:39 → 2NA 03-27 14:55
PROVIDERS: Student in an Organized Health Care Education/Training Program
PROC: 009U3ZX Drainage of Spinal Canal, Percutaneous Approach, Diagnostic (ICD-10-PCS; principal; 2017-03-25)
DX: G45.4 Transient global amnesia (principal); E87.5 Hyperkalemia; G40.909 Epilepsy, unspecified, not intractable, without status epilepticus; I10 Essential (primary) hypertension; R47.02 Dysphasia; E03.9 Hypothyroidism, unspecified; Z91.19 Patient's noncompliance with other medical treatment and regimen; Z86.73 Personal history of transient ischemic attack (TIA), and cerebral infarction without residual deficits
CPT/HCPCS: 2NAP; 87070; 87205; 87529; ERO; 36415; 71046; 80307; 81001; 93005; 93010; 95816; 96365; 96375; 99291; J0696; J1650; J3370; J3490; J7060